=== PATIENT | male | born 1995 | race Caucasian/White ===

== ENCOUNTER 2020-08-29 00:13 | Emergency (ER) | payer MEDICAID, OTHER ==
[~2020-08-29] VITALS: Ht 162.5 cm; Wt 98.4 kg
--- NOTE | 2020-08-29 00:25 | ED Syncope ---
General Chief Complaint: Dizziness/Syncope Stated Complaint: SYNCOPE Source of Information: Patient Exam Limitations: No Limitations History of Present Illness Date Seen by Provider: Aug 29, 2020 Time Seen by Provider: 00:20 Initial Comments 25-year-old male presents via EMS after having a syncopal episode a couple hours prior to arrival. He was playing video games and stood up and felt lightheaded and states he passed out and hit the ground. When he woke up he was having some chest pain. Unsure if he landed on his chest when he passed out, he denies any injury or pain of extremities, head, neck or back. Denies any recent illness, fever or chills, cough or shortness of air chest pain is mild and not worsened by anything. Timing/Prior Episodes: Single Episode Today Symptoms Prior to Episode: Lightheadedness Precipitating Factors: Standing Current Symptoms: Back to Normal, Chest Pain (mild) Allergies and Home Medications Allergies Coded Allergies: No Known Drug Allergies (Unverified , 08/29/20) Home Medications Metoprolol Succinate 25 Mg Tab.er.24h, 25 MG PO DAILY Prescribed by: EMILIANO DAVILA on 08/29/20 0139 Patient Home Medication List Home Medication List Reviewed: Yes Review of Systems Constitutional: see HPI; No fever, No malaise, No weakness EENTM: no symptoms reported Respiratory: No cough, No short of breath Cardiovascular: chest pain (mild); No edema, No palpitations; syncope Gastrointestinal: No abdominal pain, No nausea, No vomiting Musculoskeletal: No back pain, No joint pain Skin: No change in color, No rash Psychiatric/Neurological: Emotional Problems (needs his grandmother to speak for him over the phone, "because he has ADHD") Past Hsnnttp-[id number]-[id number] Hx Past Med/Social Hx: Reviewed Nursing Past Med/Soc Hx Physical Exam Vital Signs Vital Signs - First Documented 08/29/20 01:03 Temp 37.1 Pulse 117 Resp 22 B/P (MAP) 112/69 (83) Pulse Ox 97 O2 Delivery Room Air Capillary Refill : Height, Weight, BMI Height: '" Weight: lbs. oz. kg; BMI Method: General Appearance: No Apparent Distress, WD/WN HEENT: PERRL/EOMI, Normal ENT Inspection Neck: Full Range of Motion, Non Tender, Supple Cardiovascular: No Edema, No Gallop, No JVD; No JVD; Tachycardia Respiratory: Chest Non Tender, Lungs Clear, Normal Breath Sounds, No Accessory Muscle Use, No Respiratory Distress, Accessory Muscle Use Gastrointestinal: Non Tender, Soft; No Distended, No Guarding, No Tenderness Back: No CVA Tenderness, No Vertebral Tenderness Extremities: Normal Capillary Refill, Non Tender, No Calf Tenderness Neurologic/Psychiatric: Alert, No Motor/Sensory Deficits, Other (emotionally labile, cries and becomes aggressive w nurse p IV start) Cranial Nerves: Normal Hearing, Normal Speech, PERRL Progress/Results/Core Measures Results/Orders Lab Results Laboratory Tests Test 08/29/20 00:45 08/29/20 01:30 Range/Units White Blood Count 17.5 H 4.3-11.0 10^3/uL Red Blood Count 5.62 4.35-5.85 10^6/uL Hemoglobin 16.5 13.3-17.7 G/DL Hematocrit 49 40-54 % Mean Corpuscular Volume 87 80-99 FL Mean Corpuscular Hemoglobin 29 25-34 PG Mean Corpuscular Hemoglobin Concent 34 32-36 G/DL Red Cell Distribution Width 13.1 10.0-14.5 % Platelet Count 241 130-400 10^3/uL Mean Platelet Volume 11.6 H 7.4-10.4 FL Immature Granulocyte % (Auto) 1 % Neutrophils (%) (Auto) 60 42-75 % Lymphocytes (%) (Auto) 30 12-44 % Monocytes (%) (Auto) 7 0-12 % Eosinophils (%) (Auto) 1 0-10 % Basophils (%) (Auto) 1 0-10 % Neutrophils # (Auto) 10.6 H 1.8-7.8 X 10^3 Lymphocytes # (Auto) 5.2 H 1.0-4.0 X 10^3 Monocytes # (Auto) 1.3 H 0.0-1.0 X 10^3 Eosinophils # (Auto) 0.1 0.0-0.3 10^3/uL Basophils # (Auto) 0.1 0.0-0.1 10^3/uL Immature Granulocyte # (Auto) 0.2 H 0.0-0.1 10^3/uL Neutrophils % (Manual) 69 % Lymphocytes % (Manual) 26 % Monocytes % (Manual) 4 % Eosinophils % (Manual) 1 % Toxic Granulation 4+ Sodium Level 140 135-145 MMOL/L Potassium Level 3.9 3.6-5.0 MMOL/L Chloride Level 103 98-107 MMOL/L Carbon Dioxide Level 22 21-32 MMOL/L Anion Gap 15 H 5-14 MMOL/L Blood Urea Nitrogen 14 7-18 MG/DL Creatinine 0.86 0.60-1.30 MG/DL Estimat Glomerular Filtration Rate > 60 BUN/Creatinine Ratio 16 Glucose Level 102 70-105 MG/DL Calcium Level 9.2 8.5-10.1 MG/DL Corrected Calcium 8.9 8.5-10.1 MG/DL Total Bilirubin 0.4 0.1-1.0 MG/DL Aspartate Amino Transf (AST/SGOT) 28 5-34 U/L Alanine Aminotransferase (ALT/SGPT) 52 0-55 U/L Alkaline Phosphatase 77 40-136 U/L Troponin I < 0.30 <0.30 NG/ML Total Protein 7.4 6.4-8.2 GM/DL Albumin 4.4 3.2-4.5 GM/DL Urine Color YELLOW Urine Clarity CLEAR Urine pH 6.0 5-9 Urine Specific [place] >=1.030 1.016-1.022 Urine Protein NEGATIVE NEGATIVE Urine Glucose (UA) NEGATIVE NEGATIVE Urine Ketones NEGATIVE NEGATIVE Urine Nitrite NEGATIVE NEGATIVE Urine Bilirubin NEGATIVE NEGATIVE Urine Urobilinogen 0.2 < = 1.0 MG/DL Urine Leukocyte Esterase NEGATIVE NEGATIVE Urine RBC (Auto) NEGATIVE NEGATIVE Urine RBC 2-5 H /HPF Urine WBC RARE /HPF Urine Squamous Epithelial Cells 2-5 /HPF Urine Crystals NONE /LPF Urine Bacteria NEGATIVE /HPF Urine Casts NONE /LPF Urine Mucus LARGE H /LPF Urine Culture Indicated NO Urine Opiates Screen NEGATIVE NEGATIVE Urine Oxycodone Screen NEGATIVE NEGATIVE Urine Methadone Screen NEGATIVE NEGATIVE Urine Propoxyphene Screen NEGATIVE NEGATIVE Urine Barbiturates Screen NEGATIVE NEGATIVE Ur Tricyclic Antidepressants Screen NEGATIVE NEGATIVE Urine Phencyclidine Screen NEGATIVE NEGATIVE Urine Amphetamines Screen NEGATIVE NEGATIVE Urine Methamphetamines Screen NEGATIVE NEGATIVE Urine Benzodiazepines Screen NEGATIVE NEGATIVE Urine Cocaine Screen NEGATIVE NEGATIVE Urine Cannabinoids Screen NEGATIVE NEGATIVE My Orders Orders - ROVENSTINE,EMILIANO L DO Cbc With Automated Diff (08/29/20 00:25) Comprehensive Metabolic Panel (08/29/20 00:25) Ekg Tracing (08/29/20 00:25) Troponin I Fs (08/29/20 00:25) Drug Screen Stat (Urine) (08/29/20 00:25) Urinalysis (08/29/20 00:25) Ed Iv/Invasive Line Start (08/29/20 00:25) Ns Iv 1000 Ml (Sodium Chloride 0.9%) (08/29/20 00:30) Orthostatic Vital Signs (Adult (08/29/20 00:25) Chest 1 View Ap/Pa Only (08/29/20 00:25) Manual Differential (08/29/20 00:45) Ns Iv 1000 Ml (Sodium Chloride 0.9%) (08/29/20 01:30) Vital Signs/I&O 08/29/20 08/29/20 01:03 02:05 Temp 37.1 37.1 Pulse 117 112 Resp 22 22 B/P (MAP) 112/69 (83) 134/87 (83) Pulse Ox 97 97 O2 Delivery Room Air Room Air Progress Progress Note : Progress Note Patient with sinus tachycardia and EKG without any acute changes. Labs unremarkable with exception of elevated white count, no signs of infection and patient appears well. Admits he does drink [address] Lisney nugent and "vapes". Also states that he has a history of "sinus tachycardia" this was confirmed with his grandmother. He was on medication for it. We will start him on Toprol-XL 25 mg and advised to see his PCP in 1 week for reevaluation for sinus tachycardia and syncopal event. Encouraged him to drink more water and discontinue drinking any caffeinated beverages and to stop vaping. Explained to patient and his mother (who was later on the phone w him) that BOTH caffeine and nicotine are stimulants that will increase his heart rate and with his Hx of ST he should avoid both. They expressed an understanding and that he would try to cut down on both. Initial ECG Impression Date: Aug 29, 2020 Initial ECG Impression Time: 00:56 Initial ECG Rate: 109 Initial ECG Rhythm: S.Tach Initial ECG Intervals: Normal Initial ECG Impression: Normal Initial ECG Comparisson: No Previous ECG Available Departure Impression Primary Impression: Syncope Qualified Codes: R55 - Syncope and collapse Additional Impressions: Chest pain Qualified Codes: R07.9 - Chest pain, unspecified Sinus tachycardia Disposition: HOME, SELF-CARE Condition: Improved Departure-Patient Inst. Decision time for Depature: 01:38 Referrals: NO,LOCAL PHYSICIAN (PCP/Family) Primary Care Physician Patient Instructions: Syncope (Fainting) (DC), Chest Pain (DC), Sinus Tachycardia (DC) Add. Discharge Instructions: See your Primary Doctor in 1 week regarding your "sinus tachycardia" and tonights episode of passing out. Stop drinking caffeine in any form. Drink water instead. Start the medication given to you to control your heart rate.....Toprol XZ 25mg once daily. If you are taking any other medications to slow your heart rate, do not take this medication. All discharge instructions reviewed with patient and/or family. Voiced understanding. Scripts Metoprolol Succinate (Toprol Xl) 25 Mg Tab.er.24h 25 MG PO DAILY for 30 Days, #30 TAB Prov: EMILIANO DAVILA DO 08/29/20 EMILIANO DAVILA DO Aug 29, 2020 00:25
[2020-08-29] MEDS ORDERED: NS IV 1000 ML 1,000 ML IV SCH ×2 (00:30→01:30)
[2020-08-29 00:54] LABS: HEMATOCRIT 49 % (40-54); HEMOGLOBIN 16.5 G/DL (13.3-17.7); MEAN CORPUSCULAR HEMOGLOBIN 29 PG (25-34); WHITE BLOOD COUNT 17.5 10^3/uL (4.3-11.0)
[2020-08-29 00:55] LABS: BASOPHILS # (AUTO) 0.1 10^3/uL (0.0-0.1); BASOPHILS % (AUTO) 1 % (0-10); EOSINOPHILS # (AUTO) 0.1 10^3/uL (0.0-0.3); EOSINOPHILS % (AUTO) 1 % (0-10); LYMPHOCYTES # (AUTO) 5.2 X 10^3 (1.0-4.0); LYMPHOCYTES % (AUTO) 30 % (12-44); MEAN CORPUSCULAR HGB CONC 34 G/DL (32-36); MEAN CORPUSCULAR VOLUME 87 FL (80-99); MEAN PLATELET VOLUME 11.6 FL (7.4-10.4); MONOCYTES # (AUTO) 1.3 X 10^3 (0.0-1.0); MONOCYTES % (AUTO) 7 % (0-12); NEUTROPHILS # (AUTO) 10.6 X 10^3 (1.8-7.8); NEUTROPHILS % (AUTO) 60 % (42-75); PLATELET COUNT 241 10^3/uL (130-400)
[2020-08-29 01:14] LABS: ALKALINE PHOSPHATASE 77 U/L (40-136); BILIRUBIN,TOTAL 0.4 MG/DL (0.1-1.0); BUN/CREATININE RATIO 16; CALCIUM 9.2 MG/DL (8.5-10.1); CARBON DIOXIDE 22 MMOL/L (21-32); CHLORIDE 103 MMOL/L (98-107); CREATININE SERUM 0.86 MG/DL (0.60-1.30); GFR ESTIMATED > 60; GLUCOSE 102 MG/DL (70-105); POTASSIUM 3.9 MMOL/L (3.6-5.0); SODIUM 140 MMOL/L (135-145)
[2020-08-29 01:15] LABS: ALANINE AMINOTRANSFERASE 52 U/L (0-55); ALBUMIN 4.4 GM/DL (3.2-4.5); LYMPHOCYTES % (MANUAL) 26 %; NEUTROPHILS % (MANUAL) 69 %; TOTAL PROTEIN 7.4 GM/DL (6.4-8.2)
[2020-08-29 01:16] LABS: EOSINOPHILS % (MANUAL) 1 %; MONOCYTES % (MANUAL) 4 %; TOXIC GRANULATION/VACUOLAZATIO 4+
[2020-08-29 01:36] LABS: BACTERIA,URINE NEGATIVE /HPF; BILIRUBIN,URINE NEGATIVE (NEGATIVE); CLARITY,URINE CLEAR; COLOR,URINE YELLOW; GLUCOSE, URINE (UA) NEGATIVE (NEGATIVE); KETONES,URINE NEGATIVE (NEGATIVE); LEUKOCYTE ESTERASE ,URINE NEGATIVE (NEGATIVE); NITRITE,URINE NEGATIVE (NEGATIVE); PROTEIN,URINE NEGATIVE (NEGATIVE); WBC,URINE RARE /HPF
[2020-08-29] MEDS ORDERED: METO-351 PO (01:39)
[2020-08-29 01:44] LABS: AMPHETAMINE SCREEN, URINE NEGATIVE (NEGATIVE); BARBITURATE SCREEN URINE NEGATIVE (NEGATIVE); BENZODIAZEPINES SCREEN URINE NEGATIVE (NEGATIVE); CANNABINOID SCREEN, URINE NEGATIVE (NEGATIVE); COCAINE SCREEN URINE NEGATIVE (NEGATIVE); METHADONE STAT NEGATIVE (NEGATIVE); METHAMPHETAMINE SCREEN URINE S NEGATIVE (NEGATIVE); OPIATE SCREEN URINE NEGATIVE (NEGATIVE); OXYCODONE STAT NEGATIVE (NEGATIVE); PROPOXYPHENE STAT NEGATIVE (NEGATIVE); TRICYCLIC ANTIDEPRESSANTS SCRE NEGATIVE (NEGATIVE)
[2020-08-29 02:05] VITALS: BP 134/87
--- NOTE | 2020-08-29 07:18 | Diagnostic Imaging Report ---
CHEST 1 VIEW AP/PA ONLY Indication: Chest pain. Comparison: None available. Findings: No focal airspace disease in the visualized lungs. Please note that the posterior lower lobes are poorly evaluated by portable radiography. No pleural effusion or pneumothorax. Normal cardiomediastinal silhouette. Impression: 1. No acute cardiopulmonary process by portable radiography. Dictated by: Dictated on workstation # [id number]
== END 2020-08-29 02:20 | disposition home or self-care (01) ==
LOC: ER FS 00:19
DX: R55 Syncope and collapse (principal); R07.9 Chest pain, unspecified; R00.0 Tachycardia, unspecified
CPT/HCPCS: 36415; 71045; 80053; 80306; 81000; 84484; 85007; 85027; 93005